=== PATIENT | male | born 1960 | race Caucasian/White ===

== ENCOUNTER 2021-04-15 12:49 | Emergency (ER) | payer MEDICAID, MEDICARE ==
[~2021-04-15] VITALS: Ht 180.3 cm; Wt 74.8 kg
--- NOTE | 2021-04-15 13:00 | NUR ---
patient camein to the er c/o LLE swelling x 3 days. On room air, breathing evenly and unlabored. Ambulatory with steady gait. Connected to the monitor and pulse ox. Kept comfortable, will continue to monitor accordingly.
[2021-04-15 13:18] LABS: BASOPHILS # (AUTO) 0.1 K/uL (0.0-0.2); BASOPHILS % (AUTO) 0.9 % (0.0-2.0); EOSINOPHILS % (AUTO) 9.6 % (0.0-6.0); HEMATOCRIT 46 % (39-51); HEMOGLOBIN 15.9 g/dL (13.5-17.5); LYMPHOCYTES # (AUTO) 2.9 K/uL (0.8-4.8); LYMPHOCYTES % (AUTO) 30.5 % (20.0-44.0); MEAN CORPUSCULAR HGB CONC 35 g/dl (31.0-36.0); MEAN CORPUSCULAR VOLUME 94 fL (80-96); MONOCYTES # (AUTO) 0.8 K/uL (0.1-1.30); MONOCYTES % (AUTO) 8.7 % (2.0-12.0); NEUTROPHILS # (AUTO) 4.9 K/uL (1.8-8.9); NEUTROPHILS % (AUTO) 50.3 % (43.0-81.0); PLATELET COUNT (AUTO) 128 K/uL (150-450); RED BLOOD CELL COUNT(AUTO) 4.87 MIL/uL (4.5-6.0); WHITE BLOOD COUNT (AUTO) 9.7 K/uL (4.3-11.0)
[2021-04-15 13:26] LABS: CALCIUM, SERUM 8.9 mg/dL (8.5-10.1); CREATININE 1.1 mg/dL (0.6-1.3); POTASSIUM 3.8 mmol/L (3.5-5.1)
[2021-04-15 13:32] LABS: BILIRUBIN,DIRECT 0.1 mg/dL (0.0-0.2); BILIRUBIN,TOTAL 0.9 mg/dL (0.2-1.0); TOTAL PROTEIN, SERUM 8.1 g/dL (6.4-8.2)
[2021-04-15] MEDS ORDERED: APIXABAN 5 MG TABLET PO SCH (14:30)
[2021-04-15] MEDS ORDERED: APIXABAN 5 MG TABLET ONE (14:35)
[2021-04-15] MEDS ORDERED: APIX5TAB4 PO ×3 (15:00→15:06)
--- NOTE | 2021-04-15 15:02 | NUR ---
COVID SWAB DONE AND SENT TO THE LAB
[2021-04-15 15:13] VITALS: BP 130/88
--- NOTE | 2021-04-15 15:14 | NUR ---
Patient discharged to home in stable condition. Written and verbal after care instructions given. Patient verbalizes understanding of instruction.
== END 2021-04-15 15:14 | disposition home or self-care (01) ==
LOC: ER 12:56
DX: I82.412 Acute embolism and thrombosis of left femoral vein (principal); J45.909 Unspecified asthma, uncomplicated; Z20.822 Contact with and (suspected) exposure to COVID-19
CPT/HCPCS: 36415; 80048-TC; 80076-TC; 85025-TC; 85730-TC; 93971-TC; C9803; U0003